=== PATIENT | female | born 1985 | race Two or more races ===

== ENCOUNTER 2021-09-22 14:39 | Emergency (ER) | payer MEDICAID ==
[~2021-09-22] VITALS: Ht 162.6 cm; Wt 74.8 kg
[2021-09-22 14:51] VITALS: BP 127/81
[2021-09-22] MEDS ORDERED: IBUP-1955 PO (16:40)
--- NOTE | 2021-09-22 16:57 | NUR ---
Patient discharged to home in stable condition. Written and verbal after care instructions given. Patient verbalizes understanding of instruction.
== END 2021-09-22 16:56 | disposition home or self-care (01) ==
LOC: ER 14:42
DX: M25.572 Pain in left ankle and joints of left foot (principal); M79.672 Pain in left foot; W18.39XA Other fall on same level, initial encounter; Y93.89 Activity, other specified; Y92.89 Other specified places as the place of occurrence of the external cause; Y99.8 Other external cause status
CPT/HCPCS: 73610-TC; 73630-TC

== ENCOUNTER 2023-06-30 23:04 | Emergency (ER) | payer MEDICAID ==
[~2023-06-30] VITALS: Ht 162.6 cm; Wt 74.8 kg
[~2023-06-30 23:04] MED LIST: IBUP-1955 PO
[2023-07-01] MEDS ORDERED: IBUPROFEN 400 MG TABLET PO ONE (00:30)
[2023-07-01 01:59] VITALS: BP 110/78; TEMP 98.2; O2SAT 99
== END 2023-07-01 01:59 | disposition home or self-care (01) ==
LOC: ER 23:17
DX: U07.1 COVID-19 (principal)
CPT/HCPCS: 99283; 87426; 87804 ×2; 87880; C9803; 86403-TC

== ENCOUNTER 2023-08-18 13:09 | Emergency (ER) | payer MEDICAID ==
[~2023-08-18] VITALS: Ht 157.5 cm; Wt 69.4 kg
[2023-08-18 14:19] LABS: BASOPHILS % (AUTO) 0.5 % (0.0-2.0); EOSINOPHILS # (AUTO) 0.1 K/uL (0.0-0.7); EOSINOPHILS % (AUTO) 1.2 % (0.0-6.0); HEMATOCRIT 41 % (33-45); HEMOGLOBIN 13.8 g/dL (11.5-14.8); LYMPHOCYTES # (AUTO) 1.9 K/uL (0.8-4.8); LYMPHOCYTES % (AUTO) 27.2 % (20.0-44.0); MEAN CORPUSCULAR HEMOGLOBIN 32 PG (26.0-33.0); MEAN CORPUSCULAR HGB CONC 34 g/dl (31.0-36.0); MEAN CORPUSCULAR VOLUME 94 fL (82-100); MONOCYTES # (AUTO) 0.4 K/uL (0.1-1.30); MONOCYTES % (AUTO) 5.4 % (2.0-12.0); NEUTROPHILS # (AUTO) 4.5 K/uL (1.8-8.9); NEUTROPHILS % (AUTO) 65.7 % (43.0-81.0); PLATELET COUNT (AUTO) 225 K/uL (150-450); RED BLOOD CELL COUNT(AUTO) 4.36 MIL/uL (4.0-5.2); RED CELL DISTRIBUTION WIDTH 12.9 % (11.5-15.0); WHITE BLOOD COUNT (AUTO) 6.9 K/uL (4.3-11.0)
[2023-08-18 14:46] LABS: CALCIUM, SERUM 9.3 mg/dL (8.5-10.1); CREATININE 0.8 mg/dL (0.6-1.3); POTASSIUM 4.1 mmol/L (3.5-5.1)
[2023-08-18 14:53] LABS: ALBUMIN 3.4 g/dL (3.4-5.0); BILIRUBIN,DIRECT 0.1 mg/dL (0.0-0.2); BILIRUBIN,TOTAL 0.2 mg/dL (0.2-1.0); TOTAL PROTEIN, SERUM 7.2 g/dL (6.4-8.2)
[2023-08-18] MEDS ORDERED: IBUP-1955 PO (18:11)
[2023-08-18 18:19] LABS: APPEARANCE,URINE CLEAR (CLEAR); BILIRUBIN,URINE NEGATIVE (NEGATIVE); BLOOD, URINE 3+ Ery/uL (NEGATIVE); COLOR,URINE YELLOW (YELLOW); KETONES,URINE NEGATIVE (NEGATIVE); LEUKOCYTE ESTERASE ,URINE NEGATIVE (NEGATIVE); NITRITE, URINE NEGATIVE (NEGATIVE); PROTEIN,URINE NEGATIVE (NEGATIVE); UGLUCOSE NEGATIVE (NEGATIVE); UROBILINOGEN,URINE 0.2 EU/dL (0.2)
[2023-08-18 18:23] LABS: ADD URINE CULTURE NO; BACTERIA,URINE 1+ /HPF (None Seen)
[2023-08-18 18:24] LABS: PREGNANCY TEST URINE QUAL NEGATIVE (NEGATIVE)
[2023-08-18] MEDS ORDERED: KETOROLAC TROMETHAMINE INJ 30 MG/ML VIAL IV ONE (18:30)
[2023-08-18] MEDS ORDERED: IV NS 0.9% 1,000 ML IV ONE (18:30)
[2023-08-18] MEDS ORDERED: KETOROLAC TROMETHAMINE INJ 30 MG/ML VIAL ONE (18:38)
[2023-08-18 18:50] VITALS: BP 107/61; TEMP 98; O2SAT 99
== END 2023-08-18 18:50 | disposition home or self-care (01) ==
LOC: ER 13:13
DX: N83.01 Follicular cyst of right ovary (principal)
CPT/HCPCS: 99285; 74176; 96374; 76856; 85025; 80048; 87086; 83690; 80076; 84703; 81001; 36415; J1885; J7030 ×3